=== PATIENT | female | born 1965 | race African-American/Black ===

== ENCOUNTER 2017-08-03 14:26 | Emergency (ER) | payer MEDICAID ==
[~2017-08-03] VITALS: Ht 167.6 cm; Wt 125.0 kg
[~2017-08-03 14:26] MED LIST: CITA20TA19; HYDR25TA; LISI-604; MECL25TA3; VIC
[2017-08-03] MEDS ORDERED: IBUPROFEN 600MG TABLET PO ONE (15:00)
[2017-08-03] MEDS ORDERED: LIDOCAINE HCL 1% 20ML VIAL (Pyxis) INJ INFIL ONE (17:45)
[2017-08-03] MEDS ORDERED: BACITRACIN ZINC OINT UDPKT TOP ONE (17:45)
[2017-08-03] MEDS ORDERED: LIDOCAINE HCL/PF 1% 10 MG/ML 5ML VIAL INL NR (17:46)
[2017-08-03 18:46] VITALS: BP 126/65
== END 2017-08-03 18:46 | disposition home or self-care (01) ==
LOC: ER 14:31
DX: N61.1 Abscess of the breast and nipple (principal); I10 Essential (primary) hypertension; F41.9 Anxiety disorder, unspecified; Z98.890 Other specified postprocedural states
CPT/HCPCS: 10060; 87070; 87205; 99284; J3490; X7700; Z7610

== ENCOUNTER 2017-08-26 19:20 | Emergency (ER) | payer MEDICAID ==
[~2017-08-26] VITALS: Ht 167.6 cm; Wt 112.0 kg
[2017-08-26 19:41] VITALS: BP 134/81
== END 2017-08-26 21:59 | disposition home or self-care (01) ==
LOC: ER 19:20
DX: Z76.0 Encounter for issue of repeat prescription (principal); G43.909 Migraine, unspecified, not intractable, without status migrainosus; I10 Essential (primary) hypertension; Z90.49 Acquired absence of other specified parts of digestive tract; Z98.890 Other specified postprocedural states
CPT/HCPCS: 99283

== ENCOUNTER 2017-10-17 05:58 | Emergency (ER) | payer MEDICAID ==
[~2017-10-17] VITALS: Ht 167.6 cm; Wt 112.0 kg
[2017-10-17 07:30] LABS: BASOPHILS % 0.4 % (0.0-2.0); HEMOGLOBIN. 11.5 g/dL (12.0-16.0); LYMPHOCYTES % 27.3 % (20.0-50.0); MEAN CORPUSCULAR HEMOGLOBIN 26.2 pg (28.0-32.0); MEAN CORPUSCULAR VOLUME 81.7 fL (81.0-99.0); MEAN PLATELET VOLUME 6.7 fl (7.4-10.4); MONOCYTES % 5.6 % (2.0-8.0); NEUTROPHILS % 64.7 % (40.0-76.0); PLATELET 323 x1000/uL (130-400); RED CELL DISTRIBUTION WIDTH 16.9 % (11.6-14.6)
[2017-10-17 07:34] LABS: CHLORIDE 104 mEq/L (98-107)
[2017-10-17 08:01] LABS: CLARITY URINE CLOUDY (CLEAR); COLOR URINE YELLOW (YELLOW); KETONES URINE NEGATIVE (NEGATIVE); LEUKOCYTE ESTERASE URINE NEGATIVE (NEGATIVE); NITRITE URINE NEGATIVE (NEGATIVE); OCCULT BLOOD URINE NEGATIVE (NEGATIVE); PH URINE 5.5 (4.5-8.0); PROTEIN URINE NEGATIVE (NEGATIVE); SPECIFIC GRAVITY URINE 1.027 (1.005-1.030)
[2017-10-17 09:31] VITALS: BP 120/78
== END 2017-10-17 09:32 | disposition home or self-care (01) ==
LOC: ER 05:58
DX: R60.9 Edema, unspecified (principal); M25.572 Pain in left ankle and joints of left foot; M25.571 Pain in right ankle and joints of right foot; I10 Essential (primary) hypertension; Z98.890 Other specified postprocedural states; Z90.49 Acquired absence of other specified parts of digestive tract; Z79.899 Other long term (current) drug therapy
CPT/HCPCS: 36415; 71045; 80053; 81003; 83880; 85025; 99285

== ENCOUNTER 2017-10-27 19:19 | Emergency (ER) | payer MEDICAID ==
[~2017-10-27] VITALS: Ht 167.6 cm; Wt 95.0 kg
[2017-10-27] MEDS ORDERED: IBUPROFEN 600MG TABLET PO ONE (22:30)
[2017-10-28 00:03] VITALS: BP 132/85
== END 2017-10-28 05:24 | disposition home or self-care (01) ==
LOC: ER 19:19
DX: S62.616A Displaced fracture of proximal phalanx of right little finger, initial encounter for closed fracture (principal); I10 Essential (primary) hypertension; W01.0XXA Fall on same level from slipping, tripping and stumbling without subsequent striking against object, initial encounter; Y93.02 Activity, running; Y92.9 Unspecified place or not applicable
CPT/HCPCS: 29125; 73130; 99284; A4565